=== PATIENT | female | born 1985 | race Caucasian/White ===

== ENCOUNTER 2017-07-19 16:46 | Emergency (ER) | payer OTHER ==
[~2017-07-19] VITALS: Ht 162.6 cm; Wt 77.3 kg
[2017-07-19] MEDS ORDERED: MAGICMW SSP (19:44)
[2017-07-19] MEDS ORDERED: AMOX875T PO (19:44)
[2017-07-19] MEDS ORDERED: MAGIC MOUTHWASH SUSPENSION BTL PO ONE (19:45)
[2017-07-19] MEDS ORDERED: MAGIC MOUTHWASH SUSPENSION BTL SS ONE (19:45)
[2017-07-19] MEDS ORDERED: PENICILLIN V POTASSIUM 500 MG TAB PO ONE (19:45)
[2017-07-19 20:15] VITALS: BP 136/91
== END 2017-07-19 20:18 | disposition home or self-care (01) ==
LOC: M ED 16:46
DX: J02.0 Streptococcal pharyngitis (principal)

== ENCOUNTER 2018-10-07 10:14 | Emergency (ER) | payer OTHER | END 2018-10-07 10:52 | disposition home or self-care (01) | LOC: M ED 10:14 | DX: S50.872A Other superficial bite of left forearm, initial encounter (principal); W54.0XXA Bitten by dog, initial encounter; Y92.098 Other place in other non-institutional residence as the place of occurrence of the external cause; Z79.3 Long term (current) use of hormonal contraceptives | CPT/HCPCS: 99282 ==

== ENCOUNTER 2020-05-08 11:24 | Emergency (ER) | payer OTHER ==
[~2020-05-08] VITALS: Ht 162.6 cm; Wt 78.6 kg
[~2020-05-08 11:24] MED LIST: AMOX875T PO; AMOX875T2 PO; MAGICMW SSP
[2020-05-08 11:25] VITALS: BP 137/69
[2020-05-08] MEDS ORDERED: BENA25CA4 PO (11:32)
[2020-05-08] MEDS ORDERED: DEPO150I (11:32)
[2020-05-08] MEDS ORDERED: KEFL500C17 PO (11:46)
[2020-05-08] MEDS ORDERED: PRED20TA PO (11:46)
== END 2020-05-08 11:57 | disposition home or self-care (01) ==
LOC: M ED 11:24
DX: T63.441A Toxic effect of venom of bees, accidental (unintentional), initial encounter (principal); S60.222A Contusion of left hand, initial encounter; X58.XXXA Exposure to other specified factors, initial encounter; Y92.9 Unspecified place or not applicable; Y93.9 Activity, unspecified; Y99.9 Unspecified external cause status

== ENCOUNTER → 2023-08-17 | Outpatient (CLI) | payer OTHER ==
[~2023-08-17] MED LIST changes: +ACET1TAB55 PO; +ASPI81CH33 PO; +BENA25CA4 PO; +DEPO150I; +KEFL500C17 PO; +OXYC-517 PO; +OXYC1TAB23 PO; +PRED20TA PO; +PROT1TAB2 PO
== END ==
LOC: M SOG 10:01
PROVIDERS: ATTEND Orthopaedic Surgery
DX: M25.571 Pain in right ankle and joints of right foot (principal)

== ENCOUNTER 2023-08-29 11:42 | Observation (INO) | payer OTHER ==
[~2023-08-29] VITALS: Ht 162.6 cm; Wt 78.0 kg
[~2023-08-29 11:42] MED LIST changes: +TRANEXAMIC ACID INJection 1,000 MG in NS 100 ML IV ONE; +ceFAZolin SOD 2 GM in IV 1 EA IV ONE
[2023-08-29] MEDS ORDERED: LR 1,000 ML IV SCH ×3 (12:20→22:10)
[2023-08-29] MEDS ORDERED: ACETAMINOPHEN 1000MG 100ML IV BAG As Ordered ONE (12:57)
[2023-08-29] MEDS ORDERED: ROCURONIUM BROMIDE 50MG/5ML VIAL As Ordered ONE ×2 (13:00→18:30)
[2023-08-29] MEDS ORDERED: SUGAMMADEX SODIUM 500 MG/5 ML VIAL (BRIDION) As Ordered ONE (13:00)
[2023-08-29] MEDS ORDERED: KETOROLAC 60MG 2ML VIAL As Ordered ONE (13:00)
[2023-08-29] MEDS ORDERED: LIDOCAINE 2% 100MG/5ML SDV (FOR ANES.) As Ordered ONE (13:00)
[2023-08-29] MEDS ORDERED: ONDANSETRON 4MG 2ML VIAL As Ordered ONE (13:00)
[2023-08-29] MEDS ORDERED: propofoL 200 MG/20 ML VIAL As Ordered ONE (13:00)
[2023-08-29] MEDS ORDERED: VANCOMYCIN 500MG/10ML VIAL As Ordered ONE (13:00)
[2023-08-29] MEDS ORDERED: MIDAZOLAM INJ 2MG/2ML VIAL As Ordered ONE (13:01)
[2023-08-29] MEDS ORDERED: fentaNYL 100 MCG/2 ML INJECTION As Ordered ONE ×3 (13:01→18:04)
[2023-08-29] MEDS ORDERED: ROPIvacaine 0.5% 30ML VIAL PN ONE (13:50)
[2023-08-29] MEDS ORDERED: LIDOCAINE 1% SDV 5ML VIAL PN ONE (13:50)
[2023-08-29] MEDS ORDERED: dexAMETHasone 10MG/1ML VIAL PRES.FREE PN ONE (13:50)
[2023-08-29] MEDS ORDERED: EPINEPHrine INJ 1 MG/ML 1ML AMP As Ordered ONE (14:07)
[2023-08-29] MEDS ORDERED: EPINEPHrine INJ 1 MG/ML 1ML AMP PN ONE (14:20)
[2023-08-29] MEDS: fentaNYL 100 MCG/2 ML INJECTION IV PRN ×2 (14:24→14:38)
[2023-08-29] MEDS: MIDAZOLAM INJ 2MG/2ML VIAL IV PRN ×2 (14:25→14:40)
[2023-08-29] MEDS ORDERED: TRANEXAMIC ACID 100 MG/ML 10ML VIAL As Ordered ONE (15:03)
[2023-08-29] MEDS ORDERED: dexmedeTOMIDine (4MCG/ML)200MCG/50ML BTL (PRECEDEX) As Ordered ONE (15:51)
[2023-08-29] MEDS ORDERED: DESFLURANE 240 ML INHALANT As Ordered ONE (17:01)
[2023-08-29] MEDS ORDERED: ceFAZolin 2 GM/D5W 50 ML IV BAG As Ordered ONE (19:09)
[2023-08-29] MEDS ORDERED: fentaNYL 100 MCG/2 ML INJECTION IV PRN (20:40)
[2023-08-29] MEDS ORDERED: ONDANSETRON 4MG 2ML VIAL IV PRN ×2 (20:40→22:10)
[2023-08-29] MEDS ORDERED: oxyCODONE 5MG TAB PO PRN (20:40)
[2023-08-29] MEDS ORDERED: HYDROMORPHONE HCL 0.5 MG/ 0.5 ML SYRINGE IV PRN ×3 (20:40→22:10)
[2023-08-29] MEDS ORDERED: ACETAMINOPHEN *IV* 1,000 MG in IV 1 EA IV ONE (22:00)
[2023-08-29] MEDS ORDERED: ACETAMINOPHEN TAB 650MG DOSE (2X325MG) PO PRN (22:10)
[2023-08-29] MEDS: PROMETHAZINE 25MG/ML 1ML VIAL IV PRN ×2 (22:28→22:33)
[2023-08-29 23:03] VITALS: BP 107/65; TEMP 97.3; O2SAT 99
[2023-08-29 23:45] VITALS: BP 108/66; TEMP 97.6; O2SAT 97
[2023-08-30] VITALS (7 sets, daily range): BP systolic 101–119; BP diastolic 58–70; TEMP 97–98.2; O2SAT 87–97
[2023-08-30] MEDS ORDERED: GABA-282 PO (01:35)
[2023-08-30] MEDS ORDERED: ASPI-161 PO (01:35)
[2023-08-30] MEDS ORDERED: HOME MED LIST COMPLETE! XX SCH (01:35)
[2023-08-30] MEDS ORDERED: OXYC-517 PO (01:35)
[2023-08-30] MEDS ORDERED: DOCU100C17 PO (01:35)
[2023-08-30] MEDS ORDERED: ONDA-83 PO (01:35)
[2023-08-30] MEDS ORDERED: CELE1CAP4 PO (01:35)
[2023-08-30] MEDS ORDERED: HEPARIN SOD (PORCINE) 5000UNITS/ML 1ML VIAL/SYRINGE SC SCH (06:00)
[2023-08-30 06:34] LABS: BLOOD UREA NITROGEN 8 MG/DL (9-23); CALCIUM LEVEL 8.3 MG/DL (8.5-10.1); CARBON DIOXIDE LEVEL 28 MMOL/L (20-31); CHLORIDE LEVEL 109 MMOL/L (98-107); CREATININE FOR GFR 0.65 MG/DL (0.55-1.30); GLOMERULAR FILTRATION RATE > 60.0 (>58); GLUCOSE, FASTING 98 MG/DL (60-100); POTASSIUM SERUM 3.9 MMOL/L (3.5-5.1); SODIUM LEVEL 144 MMOL/L (136-145)
== END 2023-08-30 14:00 | disposition home or self-care (01) ==
LOC: M SDC 11:42 → M MS5PR 11:43
PROVIDERS: ADMIT Internal Medicine; ATTEND Student in an Organized Health Care Education/Training Program
DX: S82.871A Displaced pilon fracture of right tibia, initial encounter for closed fracture (principal); W01.0XXA Fall on same level from slipping, tripping and stumbling without subsequent striking against object, initial encounter; Y92.89 Other specified places as the place of occurrence of the external cause; Y93.9 Activity, unspecified; M54.9 Dorsalgia, unspecified; F41.9 Anxiety disorder, unspecified; F32.A Depression, unspecified; G43.909 Migraine, unspecified, not intractable, without status migrainosus; Z79.82 Long term (current) use of aspirin; Z79.899 Other long term (current) drug therapy
CPT/HCPCS: 20694; 27822; 36415; 76000; 80048; 81025; 96372; C1713; C1769; C9290; J0131; J0665; J0690; J1100; J1885; J2250; J2405; J2550; J3010; J3370

== ENCOUNTER → 2023-12-18 | Outpatient (CLI) | payer OTHER ==
[~2023-12-18] MED LIST changes: +ASPI-161 PO; +CELE1CAP4 PO; +DOCU100C17 PO; +GABA-282 PO; +ONDA-83 PO; -TRANEXAMIC ACID INJection 1,000 MG in NS 100 ML IV ONE; -ceFAZolin SOD 2 GM in IV 1 EA IV ONE
== END ==
LOC: M WHC 14:40
PROVIDERS: ATTEND Nurse Practitioner Family
DX: Z12.31 Encounter for screening mammogram for malignant neoplasm of breast (principal); R92.333 Mammographic heterogeneous density, bilateral breasts

== ENCOUNTER → 2024-08-23 | Outpatient (CLI) | payer OTHER ==
[~2024-08-23] MED LIST changes: -ASPI-161 PO; +ASPI-615 PO; +GABA-1172 PO; -GABA-282 PO
== END ==
LOC: M PLARAD 07:40
PROVIDERS: ATTEND Pain Medicine Interventional Pain Medicine
DX: M47.812 Spondylosis without myelopathy or radiculopathy, cervical region (principal); M25.78 Osteophyte, vertebrae

== ENCOUNTER → 2024-12-19 | Outpatient (CLI) | payer OTHER | LOC: M WHC 14:44 | PROVIDERS: ATTEND Family Medicine | DX: Z12.31 Encounter for screening mammogram for malignant neoplasm of breast (principal); R92.333 Mammographic heterogeneous density, bilateral breasts; R92.8 Other abnormal and inconclusive findings on diagnostic imaging of breast ==

== ENCOUNTER → 2025-01-09 | Outpatient (CLI) | payer OTHER | LOC: M WHC 07:47 | PROVIDERS: ATTEND Family Medicine | DX: R92.8 Other abnormal and inconclusive findings on diagnostic imaging of breast (principal); R92.343 Mammographic extreme density, bilateral breasts | CPT/HCPCS: 77065; G0279 ==

== ENCOUNTER → 2025-06-05 | Outpatient (CLI) | payer OTHER | LOC: M PLARAD 13:39 | PROVIDERS: ATTEND Neurological Surgery | DX: M50.83 Other cervical disc disorders, cervicothoracic region (principal); M48.02 Spinal stenosis, cervical region; M47.812 Spondylosis without myelopathy or radiculopathy, cervical region ==

== ENCOUNTER → 2025-06-25 | Outpatient (CLI) | payer OTHER ==
[~2025-06-25] MED LIST changes: +PROHANCE 279.3MG/ML 15ML VIAL ONE
== END ==
LOC: M PLAIMG 13:04
PROVIDERS: ATTEND Orthopaedic Surgery Hand Surgery
DX: M25.531 Pain in right wrist (principal); M67.431 Ganglion, right wrist; M25.431 Effusion, right wrist
CPT/HCPCS: 73223; A9576